=== PATIENT | female | born 1940 | race Caucasian/White ===

== ENCOUNTER → 2020-11-23 | Outpatient (CLI) | payer MEDICARE ==
[~2020-11-23] MED LIST: NORCO 5-325 TA1 EACH PO
== END ==
LOC: KOH-I 09:12
DX: S82.62XD Displaced fracture of lateral malleolus of left fibula, subsequent encounter for closed fracture with routine healing (principal); L84 Corns and callosities; W19.XXXD Unspecified fall, subsequent encounter
CPT/HCPCS: 73610